=== PATIENT | male | born 1980 | race Caucasian/White ===

== ENCOUNTER 2017-04-19 21:01 | Emergency (ER) | payer OTHER ==
[~2017-04-19] VITALS: Ht 185.4 cm; Wt 148.9 kg
[~2017-04-19 21:01] MED LIST: B-COCAP2 PO; [UNRECOGNIZED DRUG - OTHER] PO; [UNRECOGNIZED DRUG - OTHER] PO
[2017-04-19 21:06] VITALS: TEMP 36.8; Ht 185.4 cm; Wt 148.9 kg
[2017-04-19] MEDS ORDERED: IBUPROFEN 800 MG TAB PO STA (21:24)
[2017-04-19] MEDS ORDERED: [UNRECOGNIZED DRUG - OTHER] PO (21:34)
--- NOTE | 2017-04-19 21:40 | EMERGENCY ROOM VISIT NOTE ---
ED Visit Note First contact with patient: 21:19 CHIEF COMPLAINT: Elbow pain HISTORY OF PRESENT ILLNESS: This 36-year-old male patient presents to the emergency department complaining of pain in the left elbow after an injury around 7 PM today. The patient states that he was at work at [employer], got knocked over by one of the inmates and fell directly onto his left elbow. The patient rates their pain as throbbing and 5/10. The patient has taken no medications for relief of the pain. The patient has not had previous fractures to this elbow. The patient does not have any numbness , but states some intermittent tingling in the fingers. The patient denies any other injuries from the fall. REVIEW OF SYSTEMS: A 6 system review of systems was completed with positives and pertinent negatives listed in the HPI. ALLERGIES: No known allergies MEDICATIONS: Patient denies any prescribed medications PMH: No significant past medical history SOCIAL HISTORY: Works as a immigration guard. Current every day smoker, denies alcohol, denies recreational drug use. PHYSICAL EXAM: Vital Signs: Reviewed Nurse's notes, vital signs stable. GENERAL : Pleasant and cooperative, in no acute distress, well-developed, well- nourished. SKIN: The skin was without rashes, erythema, edema, warmth, or bruising. Capillary reflex less than 3 seconds. MUSCULOSKELETAL: The patient is holding their elbow against the chest at a 90 angle. There is tenderness over the posterior medial aspect of the left elbow. There is tenderness with flexion and extension, supination and pronation of the left elbow. There is no tenderness of the shoulder, wrist, or hand. The patient is able to give a thumbs up, make an OK sign, and a #3 with their fingers. Radial pulse 2+. NEURO: Patient was alert and oriented to person place and time. Normal sensation to light and sharp touch. EMERGENCY DEPARTMENT COURSE: I examined the patient. Differential diagnosis includes elbow sprain, strain, contusion, fracture, dislocation. Patient was given an ice pack and Motrin for pain. An x-ray of the left elbow was reviewed myself and read by radiology and shows no acute bony abnormality. The patient was placed in left arm sling for comfort under my direction and the position was satisfactory. Neurovascular status was rechecked and intact. The patient was discharged home in stable condition. Current/Historical Medications Scheduled [simply green], 1 DOSE PO DAILY Allergies Coded Allergies: No Known Allergies (Unverified , 04/19/17) Vital Signs Date Time Temp Pulse Resp B/P (MAP) Pulse Ox O2 Delivery O2 Flow Rate FiO2 04/19/17 22:28 74 16 122/70 98 04/19/17 21:06 36.8 93 20 168/114 96 Room Air Medications Administered Medications (Trade) Dose Ordered Sig/Geovanna Route Start Time Stop Time Status Last Admin Dose Admin Ibuprofen (Motrin Tab) 800 mg NOW STAT PO 04/19/17 21:24 04/19/17 21:25 DC 04/19/17 21:36 800 MG Departure Information Impression Primary Impression: Left elbow contusion Dispostion Home / Self-Care Condition GOOD Referrals Cruzito Heath D.O. (PCP) Suman Ivan M.D. Patient Instructions ED Contusion Elbow, [facility] Additional Instructions You have been treated in the Emergency Department for Elbow Pain. X-ray of your elbow today was negative for any fractures. Wear the sling for comfort, but be sure to remove the arm from the sling several times throughout the day to prevent your joints from becoming stiff. For pain control, you can use the following [id number] medicines (if >12 yo): - Regular strength (325mg/tab) Tylenol (acetaminophen) 2 tabs every 4-6 hours as needed. Do not exceed 10 tablets in a 24 hour period. Avoid taking more than 3 grams (3000 mg) of Tylenol per day. This includes any other sources of acetaminophen you may take on a regular basis. - Regular strength (200 mg/tab) Advil (ibuprofen) 3-4 tabs every 8 hours as needed. Do not exceed a dose of 3200 mg per day. If this is a recent injury (<24 hrs), ice can be applied to the area of pain for the first 3 days to help decrease pain and inflammation. You have been provided the number for an Orthopaedic Surgeon. You should call this number to establish a follow-up visit from today's Emergency Department visit. Return to the Emergency Department if your current symptoms worsen despite treatment course outlined above, or if you develop any of the following symptoms : Severe worsening pain or new numbness or tingling of the arm. Problem Qualifiers Primary Impression: Left elbow contusion Encounter type: initial encounter Qualified Codes: S50.02XA - Contusion of left elbow, initial encounter
--- NOTE | 2017-04-19 21:56 | DIAGNOSTIC IMAGING REPORT ---
LEFT ELBOW MIN 3 VIEWS ROUTINE HISTORY: 36 years-old Male acute fall directly onto elbow, eval fx, dislocation COMPARISON: None available TECHNIQUE: 3 views of the left elbow FINDINGS: There is no acute fracture, dislocation or significant degenerative changes. Bone mineralization is within normal limits. No large joint effusion or radiopaque foreign body. Mild dorsal soft tissue swelling is seen about the elbow without radiopaque foreign body. IMPRESSION: Mild soft tissue swelling without acute bony abnormality. The above report was generated using voice recognition software. It may contain grammatical, syntax or spelling errors. Electronically signed by: Lauro Rapp M.D. 04/19/2017 9:54 PM Dictated Date/Time: 04/19/2017 9:53 PM
[2017-04-19 22:28] VITALS: BP 122/70; PULSE 74; O2SAT 98
== END 2017-04-19 22:28 | disposition home or self-care (01) ==
LOC: C.EDB 21:02 → C.EDD 22:28
DX: S50.02XA Contusion of left elbow, initial encounter (principal); W03.XXXA Other fall on same level due to collision with another person, initial encounter; Y92.149 Unspecified place in prison as the place of occurrence of the external cause; Y99.0 Civilian activity done for income or pay; F17.200 Nicotine dependence, unspecified, uncomplicated